=== PATIENT | female | born 1950 | race Two or more races ===

== ENCOUNTER → 2025-05-02 | Outpatient (CLI) | payer MEDICARE, SELFPAY ==
[2025-05-02 10:25] LABS: Collection Type, Urine Clean Catch
[2025-05-02 10:51] LABS: Parathyroid Hormone Intact 49.0 pg/ml (18.5-88.0)
[2025-05-02 10:52] LABS: Basophils # (Auto) 0.1 Thou/mm3 (0.0-0.2); Basophils % (Auto) 1 % (0-2.5); Eosinophils # (Auto) 0.2 Thou/mm3 (0.0-0.5); Eosinophils % (Auto) 3 % (0-10); Hematocrit 32.3 % (36.0-46.0); Hemoglobin 10.9 g/dL (12.0-16.0); Immature Granulocytes Auto 0.01 Thou/mm3 (0.00-0.00); Lymphocytes # (Auto) 2.1 Thou/mm3 (1.0-4.8); Lymphocytes % (Auto) 28 % (10-50); Mean Corpuscular HGB Conc 33.7 g/dl (31.0-37.0); Mean Corpuscular Hemoglobin 29.9 pg (25.0-35.0); Mean Corpuscular Volume 89 fL (80-100); Monocytes # (Auto) 0.6 Thou/mm3 (0.0-0.8); Monocytes % (Auto) 8 % (0-12); Neutrophils # (Auto) 4.4 Thou/mm3 (1.8-7.7); Neutrophils % (Auto) 60 % (37-80); Nucleated Red Blood Cell # 0.00 Thou/mm3 (0.00-0.00); Nucleated Red Blood Cell % 0 /100 WBC (0); Platelet Count 136 Thou/mm3 (140-440); RDW Standard Deviation 45.8 fL (36.4-46.3); Red Blood Count 3.65 Miln/mm3 (4.00-5.20); White Blood Count 7.3 Thou/mm3 (3.6-11.0)
[2025-05-02 10:57] LABS: Vitamin B12 714 pg/mL (211-911); Vitamin D 25 Hydroxy Total 55.2 ng/mL (7.3-40.2)
[2025-05-02 11:01] LABS: Creatinine MALB Rnd Ur 59 mg/dL (30-125); Microalbumin Creat Ratio 14 mg/gCrea (<30); Microalbumin, Random Urine 8 mg/L (0-300)
[2025-05-02 11:06] LABS: Bilirubin,Urine Negative (Negative); Blood,Urine Negative (Negative); Clarity,Urine Clear (Clear/Hazy); Color,Urine Colorless (Lt Yel-Yel); Glucose, Urine Negative (Negative); Ketones,Urine Negative (Negative); Leukocyte Esterase,Urine Negative (Negative); Nitrite,Urine Negative (Negative); PH,Urine 6.0 (5.0-7.0); Protein,Urine Negative (Neg - Trace); RBC,Urine 1 /hpf (0-3); Specific Gravity,Urine 1.011 (1.001-1.035); Squamous Epithelial Cell,Urine < 1 /hpf (0-5); Urobilinogen,Urine Negative mg/dL (0.0-1.0); WBC,Urine 1 /hpf (0-5)
[2025-05-02 11:06] LABS: Alanine Aminotransferase 12 U/L (10-49); Albumin, Serum 4.3 gm/dL (3.4-4.8); Albumin/Globulin Ratio 1.4 (1.2-2.2); Alkaline Phosphatase 85 U/L (46-116); Anion Gap 11 (7-16); Aspartate Amino Transferase 25 U/L (0-34); BUN/Creatinine Ratio 16 Ratio (12-20); Bilirubin,Total 0.7 mg/dL (0.3-1.2); Blood Urea Nitrogen 25 mg/dL (9-23); Calcium 9.5 mg/dL (8.3-10.6); Calcium (Corrected) 9.5 mg/dL (8.5-10.1); Carbon Dioxide 25.2 mMol/L (20.0-31.0); Cardiac Risk Estimate 3.2 RATIO (3.7-5.6); Chloride 105 mMol/L (98-107); Cholesterol 111 mg/dL (132-200); Creatinine (Component) 1.6 mg/dL (0.6-1.3); Globulin 3.1 gm/dL (2.3-3.5); Glucose 106 mg/dL (74-106); HDL Cholesterol 35 mg/dL (40-60); LDL Cholesterol,Calculated 49 mg/dL (0-130); Osmolality,Calculated 285 (275-295); Potassium 4.8 mMol/L (3.4-5.1); Sodium 141 mMol/L (136-145); Thyroid Stimulating Hormone 1.51 uIU/mL (0.55-4.78); Total Protein 7.4 gm/dL (5.7-8.2); Triglycerides 134 mg/dL (30-150); Uric Acid 6.1 mg/dL (3.1-7.8); eGFR 34 See Note
[2025-05-02 11:20] LABS: Glucose Estimated Average 134 mg/dL (80-131); Hemoglobin A1C 6.3 % Hgb (4.8-6.0)
== END | disposition home or self-care (01) ==
PROVIDERS: PCP Internal Medicine; Referring Provider Internal Medicine; Visit Provider Internal Medicine
DX: E11.9 Type 2 diabetes mellitus without complications (principal); E78.5 Hyperlipidemia, unspecified; I10 Essential (primary) hypertension; Z00.00 Encounter for general adult medical examination without abnormal findings
CPT/HCPCS: 36415; 80053; 80061; 81001; 82043; 82306; 82570; 82607; 83036; 83970; 84443; 84550; 85025

== ENCOUNTER → 2025-05-09 | Outpatient (CLI) | payer MEDICARE, MEDICAID, SELFPAY ==
[2025-05-09 15:00] LABS: OBS Performed By LAB; OBS QC OK? Yes
[2025-05-09 15:47] LABS: Occult Blood, Stool Negative (Negative); Occult Blood, Stool #2 Negative (Negative); Occult Blood, Stool #3 Negative (Negative)
[2025-05-09 15:49] LABS: OBS Developer Expiration Date 123126; OBS Developer Lot # 1-24-551749
== END | disposition home or self-care (01) ==
PROVIDERS: PCP Internal Medicine; Referring Provider Internal Medicine; Visit Provider Internal Medicine
DX: Z12.11 Encounter for screening for malignant neoplasm of colon (principal)
CPT/HCPCS: 82270

== ENCOUNTER → 2025-06-17 | Outpatient (CLI) | payer MEDICARE, MEDICAID, SELFPAY ==
--- NOTE | 2025-06-17 11:00 | XR_ITS ---
Examination: Screening digital mammography, bilateral Computer aided detection 3-D breast Tomosynthesis, bilateral Date and time of exam: June 17, 2025, 1105 hours Compared to mammograms dating to February 01, 2013 Indication: Screening Technique: Nonmagnified MLO, CC views of the breasts to been obtained, reconstructed from 3-D Tomosynthesis images. R2 computer aided detection program utilized for evaluation of suspicious masses and/or abnormal calcifications. 3-D Tomosynthesis images obtained. Findings: Scattered areas of fibroglandular density. Benign calcifications. No interval suspicious masses Impression: BI-RADS category II: Benign Findings. Recommend 1 year follow-up mammogram.
== END | disposition home or self-care (01) ==
LOC: CDIM 10:51
PROVIDERS: Referring Provider Internal Medicine; Visit Provider Internal Medicine
DX: Z12.31 Encounter for screening mammogram for malignant neoplasm of breast (principal); R92.323 Mammographic fibroglandular density, bilateral breasts; R92.1 Mammographic calcification found on diagnostic imaging of breast
CPT/HCPCS: 77063; 77067

== ENCOUNTER 2025-07-11 07:42 | Emergency (ER) | payer OTHER, MEDICAID, SELFPAY ==
[2025-07-11 07:53] VITALS: BP 146/63; PULSE 65; RESP 18; TEMP 36.9; O2SAT 99; BMI 34.0
--- NOTE | 2025-07-11 08:11 | XR_ITS ---
Examination:Left hip AP, lateral, AP pelvis 3 views Technique: Hip AP lateral, AP pelvis, 3 views Exam date and time:July 11, 2025, 0812 hours INDICATIONS: Onset left hip pain today no trauma FINDINGS: The films do not include on the AP view of the lower hip Mild narrowing hip joints Greater trochanteric bursitis left hip No hip or pelvic fracture IMPRESSION: Mild narrowing hip joints Greater trochanteric bursitis left hip.
--- NOTE | 2025-07-11 09:13 | PD.EDHIP ---
Lower Extremity Injury RME/HPI General Chief Complaint: Hip Injury/Pain Stated Complaint: L) HIP PAIN, 04/21 Time Seen by Provider: 07/11/25 07:56 Source: patient Arrival date/time: 07/11/25 07:42 74-year-old female with a history of hyperlipidemia, hypertension presents to the emergency room with a chief complaint of left-sided hip pain x 2 days Mode of arrival: ambulatory Limitations: no limitations Related Data Home Medications ?Medication ?Instructions ?Recorded ?Confirmed sertraline 50 mg tablet 50 mg PO QDAY 02/24/18 03/25/23 atorvastatin 10 mg tablet 10 tab PO QDAY 05/30/22 03/25/23 glipizide 5 mg-metformin 500 mg 1 tab PO BID 05/30/22 03/25/23 tablet lisinopril 10 mg tablet 10 tab PO QDAY 05/30/22 03/25/23 furosemide 20 mg tablet 20 mg PO QDAY 03/25/23 03/25/23 ibuprofen 400 mg tablet 400 mg PO BID 03/25/23 03/25/23 Allergies Allergy/AdvReac Type Severity Reaction Status Date / Time No Known Allergies Allergy Verified 07/11/25 07:46 Review of Systems Review of Systems Systems Reviewed: All systems reviewed, normal except as documented Constitutional Constitutional: Reports system reviewed and no additional complaints, except as documented, Denies fatigue, Denies fever(s), Denies headache(s) and Denies weakness Eyes Eyes: Reports system reviewed and no additional complaints, except as documented, Denies blurry vision and Denies change in vision ENT Ears, Nose, Mouth, and Throat: Reports system reviewed and no additional complaints, except as documented, Denies otalgia, Denies headache(s), Denies nasal congestion, Denies throat swelling and Denies vertigo Cardiovascular Cardiovascular: Reports system reviewed and no additional complaints, except as documented, Denies chest pain, Denies dyspnea and Denies dyspnea on exertion Respiratory Respiratory: Reports system reviewed and no additional complaints, except as documented, Denies chest congestion, Denies cough, Denies dyspnea, Denies dyspnea on exertion and Denies wheezing Gastrointestinal Gastrointestinal: Reports system reviewed and no additional complaints, except as documented, Denies abdominal pain, Denies cramping, Denies nausea and Denies vomiting Genitourinary Genitourinary: Reports system reviewed and no additional complaints, except as documented Musculoskeletal Musculoskeletal: Reports system reviewed and no additional complaints, except as documented, Reports arthralgias, Denies back pain, Reports joint swelling, Reports limited range of motion and Reports stiffness Integumentary/Breasts Skin/Breast: Reports system reviewed and no additional complaints, except as documented and Denies wounds Neurologic Neurologic: Reports system reviewed and no additional complaints, except as documented, Denies confusion, Denies headache(s), Denies lack of coordination, Denies vertigo and Denies weakness Psychiatric Psychiatric: Reports system reviewed and no additional complaints, except as documented, Denies anxiety, Denies confusion, Denies depression, Denies paranoia, Denies suicidal ideation and Denies tactile hallucinations Endocrine Endocrine: Reports system reviewed and no additional complaints, except as documented and Denies fatigue Hematologic/Lymphatic Hematologic/Lymphatic: Reports system reviewed and no additional complaints, except as documented and Denies lymphadenopathy Allergic/Immunologic Allergic/Immunologic: Reports system reviewed and no additional complaints, except as documented, Denies throat swelling, Denies urticaria and Denies wheezing Past Medical History Past Medical History NEUROLOGIC: Positive Neurological Disorders and Cerebrovascular Accident; Negative Seizures CARDIAC: Positive Cardiac Disorders, Hypercholesterolemia and Hypertension; Negative Congestive Heart Failure RESPIRATORY: Negative Chronic Obstructive Pulmonary Disease (COPD) GASTROINTESTINAL: Negative Gastrointestinal Disorders GENITOURINARY: Negative Genitourinary Disorders or Renal Disease REPRODUCTIVE: Positive Previous Pregnancies MUSCULOSKELETAL: Negative Musculoskeletal Disorders ENT: Positive Cataracts and Eye Prosthesis ENDOCRINE: Positive Endocrine Disorders and Diabetes Mellitus Type 2; Negative Diabetes Mellitus Type 1 HEMATOLOGIC: Negative Blood Disorders PSYCHO/SOCIAL: Positive Depression and Anxiety OTHER HISTORY: Positive Chicken Pox; Negative Autoimmune Disease, Developmental Delay, Falls, Blood Transfusions, Blood Transfusion Reaction or Anesthesia Reactions Family History FAMILY HISTORY: Positive Family Cardiac Disorders and Family Surgery; Negative Family Psychiatric Problems, Family Respiratory Disorders, Family Gastrointestinal Problems, Family Cancer or Family Anesthesia Reaction Surgical History SURGICAL: Positive Eye Surgery, Hysterectomy and Section Social History SMOKING STATUS: Former smoker ED Exam General Limitations: Present no limitations General appearance: Present alert and in no apparent distress Head Head exam: Present atraumatic Eye Eye exam: Present normal appearance, PERRL and EOMI ENT ENT exam: Present normal exam, normal oropharynx and mucous membranes moist Neck Neck exam: Present normal inspection, full ROM and trachea midline Chest Chest inspection: Present normal inspection and symmetric chest wall rise Respiratory Respiratory exam: Present normal lung sounds bilaterally Cardiovascular Cardiovascular exam: Present regular rate, normal rhythm and normal heart sounds Abdominal Exam Abdominal exam: Present soft and normal bowel sounds Extremities Exam Extremities exam: Present normal inspection and full ROM Expanded Lower Extremity Exam Hip/Pelvis exam: Present tenderness and swelling; Absent full ROM or erythema Back Exam Back exam: Present normal inspection and full ROM Neurological Exam Neurological exam: Present alert, oriented X3 and CN II-XII intact Psychiatric Psychiatric exam: Present normal affect and normal mood Skin Skin exam: Present warm, dry, intact and normal color Course Quality Measures none Orders Category Date Time Status XR hip LT w pelvis 2-3V Stat Exams 07/11/25 08:11 Completed Ketorolac Inj [Toradol Inj] Med 07/11/25 09:08 Discontinued 30 mg IM X1 ONE Vital Signs Vital signs: Vital Signs Temperature 98.5 F 07/11/25 07:53 Pulse Rate 65 07/11/25 07:53 Respiratory Rate 18 07/11/25 07:53 Blood Pressure 146/63 H 07/11/25 07:53 Pulse Oximetry (%) 99 07/11/25 07:53 Oxygen Delivery Method Room Air 07/11/25 07:53 Extremity Injury, Lower MDM Narrative MDM Narrative:: 74-year-old female with a history of hyperlipidemia, hypertension presents to the emergency room with a chief complaint of left-sided hip pain x 2 days Patient is hemodynamically stable and in no apparent distress. Physical examination shows tenderness and pain to the patient's left hip with palpation. Patient states yesterday she was ambulating normally and today she is having to use a walker due to the pain and tenderness to the area. X-ray of the left hip was completed and shows bursitis of the left hip. Patient was given medication and was discharged and educated to follow-up with her primary care provider Patient was discharged and educated to follow-up with primary care provider in the next 24 to 48 hours and return to the emergency room for any evidence of worsening signs or symptoms Patient data External records reviewed:: [facility] previous records Clinical information provided by:: patient Social determinants that could affect healthcare access:: none Patient has the following chronic illnesses:: Hyperlipidemia, hypertension, type 2 diabetes How is presenting disease/condition affected by chronic disease/condition?: uneffected by Evaluation data The following diagnostics were reviewed and interpreted by me:: lab results and radiology exam(s) Lab and/or radiology exams considered but not ordered:: Labs and radiology exams considered but ordered Interpretation Summary: X-ray left hip-FINDINGS: The films do not include on the AP view of the lower hip Mild narrowing hip joints Greater trochanteric bursitis left hip No hip or pelvic fracture IMPRESSION: Mild narrowing hip joints Greater trochanteric bursitis left hip. Medications / Prescriptions Medications or Prescriptions considered but not ordered:: Medication given Medication administrations:: Medication Administration History Discontinued Medications Ketorolac Tromethamine (Ketorolac Inj 60 Mg/2 Ml Vial) 30 mg IM X1 ONE Stop: 07/11/25 09:09 Medication given Consultations Consultation(s) initiated? (list below): No Diagnosis Extremity Injury, Lower Differential Diagnosis: other (Bursitis of left hip/left hip fracture/left hip contusion) Most likely diagnosis given after review of the tests above:: Bursitis of left hip Admission Indicated Admission indicated?: not indicated Admission Request Was there a request for admission?: No Disposition Plan Disposition Plan: Discharge Discharge Attestation Discharge Attestation: The patient and all family members were given an opportunity to ask questions and understood the discharge instructions. Discharge instructions specifically effects, indications for sooner follow up or return to the emergency department, and the expected course of current diagnosis. Patient condition: Stable Discharge Plan Plan Patient Disposition: HOME (Self Care) Discharge Disposition comment: Stable Prescriptions/Referrals Prescriptions/Med Rec: No Action atorvastatin 10 mg tablet 10 tab PO QDAY Patient Comments: TAKE 1 TABLET BY MOUTH AT BEDTIME lisinopril 10 mg tablet 10 tab PO QDAY Patient Comments: TAKE 1 TABLET BY MOUTH ONCE DAILY glipizide-metformin 5-500 mg tablet 1 tab PO BID Patient Comments: TAKE 1 TABLET BY MOUTH TWICE DAILY sertraline 50 mg Tablet 50 mg PO QDAY ibuprofen 400 mg Tablet 400 mg PO BID furosemide 20 mg tablet 20 mg PO QDAY Patient Comments: TAKE 1 TABLET BY MOUTH ONCE DAILY Problem List Clinical Impression: Bursitis of left hip Patient/Caregiver Discharge Instructions Education Materials: What Is Bursitis?, ED Bursitis Additional Instructions: Please follow-up with your primary care provider in the next 24 to 48 hours Medication was sent to help you with your pain. Please protect, rest, ice, elevate the extremity. For any evidence of worsening signs or symptoms return to the emergency room immediately Print Language: Iranian Stand Alone Forms: Za Award Info., Work/School Release, Patient Portal Info Letter PA/COLLINS Supervising Physician PA/BILL DISTRIBUTOR Supervising Physician: Dr. Verduzco
[2025-07-11] MEDS: KETOROLAC INJ 60 MG/2 ML VIAL 30 MG IM (09:51)
== END 2025-07-11 11:08 | disposition home or self-care (01) ==
PROVIDERS: Emergency Provider Family Medicine; PCP Internal Medicine
DX: M70.62 Trochanteric bursitis, left hip (principal); M25.852 Other specified joint disorders, left hip
CPT/HCPCS: 73502; 96372; 99283; J1885

== ENCOUNTER 2025-07-18 19:51 | Inpatient (IN) | payer MEDICARE, MEDICAID, SELFPAY ==
[2025-07-18 19:53] VITALS: BMI 34.0
[2025-07-18 20:21] VITALS: BP 144/63; PULSE 63; RESP 20; TEMP 36.9; O2SAT 93
--- NOTE | 2025-07-18 20:27 | EKG_ITS ---
[facility] Test Date: 2025-07-18 Pat Name: MANUEL BOUDREAUX Department: Room: - Gender: Female Betting Clerk: : 1950 Requested By: Sal Arrieta Order Number: [id number] Reading MD: Sal Arrieta Measurements Intervals [place] Rate: 60 P: 36 MN: 199 QRS: 7 QRSD: 90 T: 15 QT: 439 QTc: 441 Interpretive Statements SINUS RHYTHM POSSIBLE LEFT ATRIAL ENLARGEMENT [-0.1mV P-WAVE IN V1/V2] LOW QRS VOLTAGE IN PRECORDIAL LEADS [QRS DEFLECTION < 1.0 mV IN CHEST LEADS] POSSIBLE ANTERIOR MYOCARDIAL INFARCTION , PROBABLY OLD [30 ms Q WAVE IN V3/V4, OR R < 0.2 mV IN V4] Compared to ECG 07/14/2018 12:56:04 Myocardial infarct finding now present /store/S0/[id number]/ecg/[id number].pdf
--- NOTE | 2025-07-18 20:28 | XR_ITS ---
Examination: PA chest single view Technique: Upright PA chest single view Date and time: July 18, 2025, 2048 hrs., Comparison September 07, 2018 Indications: Shortness of breath dizziness beginning today. Findings: Mild heart failure. Mild to moderate enlargement cardiac contour Prominent vascular congestion including central vascular engorgement Early septal edema at the lung bases Mitral valvular calcification Prominent osteopenia Impression: Early heart failure. Pulmonary artery hypertension
--- NOTE | 2025-07-18 20:28 | PD.EDRME ---
Rapid Medical Screening Exam E Arrival date/time: 07/18/25 19:51 Chief Complaint: Shortness of Breath/Dyspnea Time Seen by Provider: 07/18/25 20:07 Vital signs: Vital Signs Temperature 98.5 F 07/18/25 20:21 Pulse Rate 63 07/18/25 20:21 Respiratory Rate 20 07/18/25 20:21 Blood Pressure 144/63 H 07/18/25 20:21 Pulse Oximetry (%) 93 L 07/18/25 20:21 Oxygen Delivery Method Room Air 07/18/25 20:21 [facility] Narrative: Shortness of breath, dizziness started today. Denies cough or chest pain.
[2025-07-18 21:06] LABS: Basophils # (Auto) 0.1 Thou/mm3 (0.0-0.2); Basophils % (Auto) 1 % (0-2.5); Eosinophils # (Auto) 0.0 Thou/mm3 (0.0-0.5); Eosinophils % (Auto) 1 % (0-10); Hematocrit 30.6 % (36.0-46.0); Hemoglobin 10.1 g/dL (12.0-16.0); Immature Granulocytes Auto 0.02 Thou/mm3 (0.00-0.00); Lymphocytes # (Auto) 1.5 Thou/mm3 (1.0-4.8); Lymphocytes % (Auto) 17 % (10-50); Mean Corpuscular HGB Conc 33.0 g/dl (31.0-37.0); Mean Corpuscular Hemoglobin 30.2 pg (25.0-35.0); Mean Corpuscular Volume 92 fL (80-100); Monocytes # (Auto) 0.6 Thou/mm3 (0.0-0.8); Monocytes % (Auto) 7 % (0-12); Neutrophils # (Auto) 6.4 Thou/mm3 (1.8-7.7); Neutrophils % (Auto) 75 % (37-80); Nucleated Red Blood Cell # 0.00 Thou/mm3 (0.00-0.00); Nucleated Red Blood Cell % 0 /100 WBC (0); Platelet Count 154 Thou/mm3 (140-440); RDW Standard Deviation 49.3 fL (36.4-46.3); Red Blood Count 3.34 Miln/mm3 (4.00-5.20); White Blood Count 8.6 Thou/mm3 (3.6-11.0)
[2025-07-18 21:18] LABS: Alanine Aminotransferase 33 U/L (10-49); Albumin, Serum 4.3 gm/dL (3.4-4.8); Albumin/Globulin Ratio 1.5 (1.2-2.2); Alkaline Phosphatase 92 U/L (46-116); Anion Gap 10 (7-16); Aspartate Amino Transferase 40 U/L (0-34); BUN/Creatinine Ratio 16 Ratio (12-20); Bilirubin,Total 0.7 mg/dL (0.3-1.2); Blood Urea Nitrogen 29 mg/dL (9-23); Calcium 9.3 mg/dL (8.3-10.6); Calcium (Corrected) 9.3 mg/dL (8.5-10.1); Carbon Dioxide 24.6 mMol/L (20.0-31.0); Chloride 109 mMol/L (98-107); Creatinine (Component) 1.8 mg/dL (0.6-1.3); Estimated Creatinine Clearance 27.0 mL/min (>60); Globulin 2.8 gm/dL (2.3-3.5); Glucose 101 mg/dL (74-106); Osmolality,Calculated 292 (275-295); Potassium 4.2 mMol/L (3.4-5.1); Sodium 144 mMol/L (136-145); Total Protein 7.1 gm/dL (5.7-8.2); Troponin I 0.020 ng/mL (0.0-0.045); eGFR 29 See Note
[2025-07-18 21:19] LABS: B-Type Natriuretic Peptide 889 pg/mL (0-100)
[2025-07-18 21:21] LABS: D-Dimer 526 ng/mL (<600)
--- NOTE | 2025-07-18 22:05 | EDNOTE_ITS ---
ED General RME/HPI General Chief complaint: Shortness of Breath/Dyspnea Stated complaint: SOB Time Seen by Provider: 07/18/25 20:07 Arrival date/time: 07/18/25 19:51 CC: Shortness of breath HPI patient first noticed today approximately 1:00 this afternoon the patient noticed that she had difficulty getting short of breath after taking 510 steps. She does not recall that happening prior to today. Patient denies fever chest pain nausea vomiting or diarrhea. Current medications do not include any diuretics. Patient states when resting she has no problems but when she is begins to move around the house she becomes short of breath. No other complaints at this time RME / HPI RME / HPI narrative: Shortness of breath, dizziness started today. Denies cough or chest pain. Related Data Home Medications ?Medication ?Instructions ?Recorded ?Confirmed sertraline 50 mg tablet 50 mg PO QDAY 02/24/1803/25 atorvastatin 10 mg tablet 10 tab PO QDAY 05/30/2203/13 glipizide 5 mg-metformin 500 mg 1 tab PO BID 05/30/22 03/25/23 tablet lisinopril 10 mg tablet 10 tab PO QDAY 05/30/2203/13 furosemide 20 mg tablet 20 mg PO QDAY 03/25/2303/25 ibuprofen 400 mg tablet 400 mg PO BID 03/25/2303/25 Allergies Allergy/AdvReac Type Severity Reaction Status Date / Time No Known Allergies Allergy Verified 07/11/25 07:46 Review of Systems Review of Systems Narrative Review of Systems: GEN: No fever, no chills, no weight loss EYES: No discharge, no visual changes, no pain HEENT: No ear pain, no congestion, no sore throat PULM: + shortness of breath, no cough, no congestion CV: No chest pain, no dyspnea on exertion, no palpitations GI: No nausea, no vomiting, no diarrhea, no pain, no constipation : No frequency, no urgency, no dysuria MUSC/SKEL: No joint pain, no back pain SKIN: No rash PSYCH: No hallucinations, no depression HEME/LYMPH: No easy bleeding or bruising tendencies NEURO: No weakness, no headache Past Medical History Past Medical History NEUROLOGIC: Positive Neurological Disorders and Cerebrovascular Accident; Negative Seizures CARDIAC: Positive Cardiac Disorders, Hypercholesterolemia and Hypertension; Negative Congestive Heart Failure RESPIRATORY: Negative Chronic Obstructive Pulmonary Disease (COPD) GASTROINTESTINAL: Negative Gastrointestinal Disorders GENITOURINARY: Negative Genitourinary Disorders or Renal Disease REPRODUCTIVE: Positive Previous Pregnancies MUSCULOSKELETAL: Negative Musculoskeletal Disorders ENT: Positive Cataracts and Eye Prosthesis ENDOCRINE: Positive Endocrine Disorders and Diabetes Mellitus Type 2; Negative Diabetes Mellitus Type 1 HEMATOLOGIC: Negative Blood Disorders PSYCHO/SOCIAL: Positive Depression and Anxiety OTHER HISTORY: Positive Chicken Pox; Negative Autoimmune Disease, Developmental Delay, Falls, Blood Transfusions, Blood Transfusion Reaction or Anesthesia Reactions Family History FAMILY HISTORY: Positive Family Cardiac Disorders and Family Surgery; Negative Family Psychiatric Problems, Family Respiratory Disorders, Family Gastrointestinal Problems, Family Cancer or Family Anesthesia Reaction Surgical History SURGICAL: Positive Eye Surgery, Hysterectomy and Section Social History SMOKING STATUS: Never smoker ED Exam Narrative Physical exam: [General: Obese not in any acute distress when resting in bed Head normocephalic HEENT: Eyes pupils are PERRLA EOMs are intact mouth pink moist membranes uvula is midline swallow symmetrical phonation is normal. All other subsystems HEENT are within acceptable limits Neck is supple nontender no JVD no edema Chest equal chest rise nontender to palpation Respiratory: Subtle basilar end expiratory crackles. CV: Rate rhythm is regular grade 3 murmur Abdomen is distended secondary to body habitus soft nontender no masses positive bowel sounds all 4 quadrants Back: No CVA tenderness no spinous process tenderness from cervical spine thoracic and lumbar spine Skin: Intact no petechiae rash induration ulceration or crepitus Extremities: Moving all extremity against resistance cap refill less than 2 seconds neurosensory intact. No lower extremity edema Neuro: Awake alert oriented x3 Glascow coma 15 no focal deficits] Course Course Course Narrative: Patient is clinical finding including the murmur laboratory results and imaging discussed with Dr. Liang who would like the patient admitted for early heart failure exertional dyspnea. Patient is in agreement with this plan. Quality Measures none Orders Category Date Time Status Admit to Inpatient Status Routine Admission 07/18/25 21:59 Active EKG (ED ONLY) *Do not use* NOW Care 07/18/25 20:27 Completed CXR [XR chest 1V] Stat Exams 07/18/25 20:28 Completed EKG (ED Only) Stat Exams 07/18/25 20:27 Draft BNP [B-Type Natriuretic Peptide] Stat Lab 07/18/25 20:41 Completed CBC Stat Lab 07/18/25 20:41 Completed CMP [Comprehensive Metabolic Panel] Stat Lab 07/18/25 20:41 Completed D-Dimer Stat Lab 07/18/25 20:41 Completed Troponin I Stat Lab 07/18/25 20:41 Completed Vital Signs Vital signs: Vital Signs Temperature 98.5 F 07/18/25 20:21 Pulse Rate 63 07/18/25 20:21 Respiratory Rate 20 07/18/25 20:21 Blood Pressure 144/63 H 07/18/25 20:21 Pulse Oximetry (%) 93 L 07/18/25 20:21 Oxygen Delivery Method Room Air 07/18/25 20:21 Discharge Plan Plan Patient Disposition: Other Care w/in Hosp ([facility]) Patient condition on transfer: Stable Prescriptions/Referrals Prescriptions/Med Rec: No Action atorvastatin 10 mg tablet 10 tab PO QDAY Patient Comments: TAKE 1 TABLET BY MOUTH AT BEDTIME lisinopril 10 mg tablet 10 tab PO QDAY Patient Comments: TAKE 1 TABLET BY MOUTH ONCE DAILY glipizide-metformin 5-500 mg tablet 1 tab PO BID Patient Comments: TAKE 1 TABLET BY MOUTH TWICE DAILY sertraline 50 mg Tablet 50 mg PO QDAY ibuprofen 400 mg Tablet 400 mg PO BID furosemide 20 mg tablet 20 mg PO QDAY Patient Comments: TAKE 1 TABLET BY MOUTH ONCE DAILY Referrals: Juan Liang MD [Primary Care Provider, Nephrology] - In 1 week Problem List Clinical Impression: Shortness of breath, CHF (congestive heart failure), Heart murmur Patient/Caregiver Discharge Instructions Print Language: Estonian Stand Alone Forms: Za Award Info., Patient Portal Info Letter PA/SCHOOL LIBRARY MEDIA SPECIALIST Supervising Physician PA/SCHOOL LIBRARY MEDIA SPECIALIST Supervising Physician: Alex Ramirez ENP [facility] Clinical Information Provided by: patient Medical Records reviewed [facility] Meds/Rx considered, not ordered None Labs/Rad/Tests considered, not ordered None Chronic Illness/Social Conditions Explain: Diabetes depression hyperlipidemia EKG Interpretation EKG #1: EKG Interpretation: EKG performed at 2030 shows a ventricular rate of 60 LA interval 199 QRS of 98 QTc of 441 compared to an old EKG of 2018 there are no significant changes. Labs Labs: interpreted by ar Lab(s) Interpretation(s): CBC shows no acute leukocytosis there is stable anemia with a hemoglobin of 10.1 hematocrit of 30.6. No thrombocytopenia D-dimer within normal limits CMP shows a chloride of 109 BUN of 29 creatinine of 1.8 note this a slight rise in the creatinine, no other electrolyte imbalances no renal impairment AST at 40 no other transaminitis T. bili within acceptable limits Troponin is 0.020 BMP at 889. Imaging Imaging interpretation: interpreted by me Imaging Interpretation(s): Chest x-ray shows early mild failure.
[2025-07-18 22:38] VITALS: BP 177/68; PULSE 60; RESP 19; TEMP 36.9; O2SAT 95
[2025-07-18 23:00] VITALS: PULSE 60
[2025-07-18 23:15] VITALS: BP 157/89; PULSE 59; RESP 19; TEMP 36.9; O2SAT 94
[2025-07-19] VITALS (12 sets, daily range): BP systolic 137–166; BP diastolic 48–79; PULSE 52–76; RESP 11–93; TEMP 36.1–36.8; O2SAT 90–98
[2025-07-19 06:08] LABS: Albumin, Serum 4.3 gm/dL (3.4-4.8); Anion Gap 9 (7-16); Aspartate Amino Transferase 36 U/L (0-34); BUN/Creatinine Ratio 14 Ratio (12-20); Blood Urea Nitrogen 22 mg/dL (9-23); Calcium 9.5 mg/dL (8.3-10.6); Calcium (Corrected) 9.5 mg/dL (8.5-10.1); Carbon Dioxide 24.3 mMol/L (20.0-31.0); Chloride 107 mMol/L (98-107); Creatine Kinase 69 U/L (34-171); Creatinine (Component) 1.6 mg/dL (0.6-1.3); Estimated Creatinine Clearance 30.3 mL/min (>60); Glucose 138 mg/dL (74-106); LDH (Lactate Dehydrogenase) 234 U/L (120-246); Osmolality,Calculated 284 (275-295); Phosphorous 3.3 mg/dL (2.4-5.1); Potassium 4.0 mMol/L (3.4-5.1); Sodium 140 mMol/L (136-145); Troponin I 0.020 ng/mL (0.0-0.045); eGFR 34 See Note
[2025-07-19] MEDS: FUROSEMIDE INJ 10 MG/ML 4ML VIAL 40 MG IVP (08:43)
--- NOTE | 2025-07-19 09:46 | ESHP_ITS ---
Documentation for date of: 07/19/25 [facility] History of Present Illness Chief complaint: Shortness of breath since yesterday afternoon History of present illness: Sophie is a 74-year-old female with a history of hypertension, hyperlipidemia, type 2 diabetes mellitus, prior cerebrovascular accident with residual mild dementia, depression, and anxiety, presented to the ED last night (07/18/25) for new-onset shortness of breath that began earlier in the afternoon around 1:00 PM. She reports becoming short of breath after walking only a few steps, which has not happened before. Symptoms improve at rest. She denies chest pain, orthopnea, PND, palpitations, cough, fever, chills, nausea, vomiting, or leg swelling. She is not on any diuretics at home. In the ED, vitals were stable. Exam revealed a blowing systolic murmur heard from the anterior chest and posterior lung yeung, with subtle bibasilar crackles. CXR showed early pulmonary vascular congestion and mild pulmonary artery hypertension. BNP was elevated at 889, and troponins were negative ?2. Creatinine was 1.8 --> 1.6 overnight. Cardiology was consulted and recommended admission for evaluation of early congestive heart failure and possible valvular disease. An echocardiogram is pending. Review of Systems: As per HPI. All other systems reviewed and negative. Past Medical History: * Hypertension * Hyperlipidemia * Type 2 Diabetes Mellitus * Cerebrovascular accident * Dementia * Depression and anxiety * Cataract, right eye prosthesis Past Surgical History: * section * Hysterectomy * Eye surgery Family History: * Positive for cardiac disease and prior surgeries * Negative for cancer, anesthesia reactions, or psychiatric disorders Social History: * Never smoker * Denies alcohol or drug use * Lives at home; mild memory impairment at baseline Home Medications: * Atorvastatin 10 mg daily * Lisinopril 10 mg daily * Donepezil 5 mg nightly * Sertraline 100 mg daily * Sitagliptin (Januvia) 25 mg daily * Ibuprofen PRN (advised to discontinue) Allergies: No known drug allergies. Review of Systems Review of Systems Narrative Review of Systems: CONSTITUTIONAL: Patient denies any fever, chills. HEENT: Denies any visual disturbances or hearing problems. CARDIOVASCULAR: Patient denies any chest pain, swelling in the lower extremities. PULMONARY: Patient complaining of shortness of breath GASTROINTESTINAL: Patient denies any abdominal pain, constipation, nausea, vomiting, diarrhea. GENITOURINARY: Patient denies any urinary symptoms of burning or frequency or hematuria, denies any form in the urine. SKIN: Denies any rash. MUSCULOSKELETAL: History of arthritis, hip pain NEUROLOGICAL: Denies any neurological problems of strokes, seizures or confusion. Patient has memory lapses PSYCHIATRIC: History of anxiety and depression Exam Vital Signs Temp Pulse Resp BP Pulse Ox O2 Del Method 96.9 F 66 11 L 155/71 H 90 L Room Air 07/19/25 08:00 07/19/25 08:43 07/19/25 08:00 07/19/25 08:43 07/19/25 08:00 07/19/25 08:00 Narrative Exam General: Awake, alert, no acute distress, obese habitus HEENT: PERRLA, EOMI, moist mucosa, no JVD Neck: Supple, no thyromegaly or bruits Cardiac: Regular rate/rhythm; grade 3/6 blowing systolic murmur radiating posteriorly; no rubs or gallops Lungs: Bibasilar end-expiratory crackles; no wheezes or rhonchi Abdomen: Soft, nontender, nondistended, bowel sounds active Extremities: No cyanosis, clubbing, or edema; pulses palpable Neuro: Alert and oriented ?2 (baseline), no focal deficits Skin: Warm, intact, no rash or lesions Results: Labs 07/18/25 20:41 07/19/25 05:30 Labs: Short CBC 07/18/25 Range/Units 20:41 WBC 8.6 (3.6-11.0) Thou/mm3 Hgb 10.1 L (12.0-16.0) g/dL Hct 30.6 L (36.0-46.0) % Plt Count 154 (140-440) Thou/mm3 BMP 07/18/25 07/19/25 20:41 05:30 Sodium 144 140 Potassium 4.2 4.0 Chloride 109 H 107 Carbon Dioxide 24.6 24.3 BUN 29 H 22 Creatinine 1.8 H 1.6 H Glucose 101 138 H Calcium 9.3 9.5 Cardiac Enzymes 07/18/25 07/19/25 Range/Units 20:41 05:30 Total Creatine Kinase 69 (34-171) U/L Troponin I 0.020 0.020 (0.0-0.045) ng/mL Liver Function 07/18/25 07/19/25 Range/Units 20:41 05:30 Total Bilirubin 0.7 (0.3-1.2) mg/dL AST 40 H 36 H (0-34) U/L ALT 33 (10-49) U/L Alkaline Phosphatase 92 (46-116) U/L Albumin 4.3 4.3 (3.4-4.8) gm/dL Quality Measures Quality Measures VTE prophylaxis Advance care planning discussed with:: patient Medications Home Medications and Allergies Home Medications ?Medication ?Instructions ?Recorded ?Confirmed ?Type sertraline 50 mg tablet 100 mg PO HS 02/24/18 History atorvastatin 10 mg tablet 10 tab PO QDAY 05/30/2205/06 History glipizide 5 mg-metformin 500 mg 1 tab PO BID 05/30/22 07/19/25 History tablet lisinopril 10 mg tablet 10 tab PO QDAY 05/30/2205/06 History furosemide 20 mg tablet 20 mg PO QDAY 03/25/2307/19 History ibuprofen 400 mg tablet 400 mg PO BID 03/25/2307/19 History donepezil 5 mg tablet 5 mg PO HS 07/19/25 07/19/25 History sitagliptin phosphate 25 mg tablet 25 mg PO QDAY 07/1907/19/25 History (Januvia) Allergies Allergy/AdvReac Type Severity Reaction Status Date / Time No Known Allergies Allergy Verified 07/11/25 07:46 Visit Medications Furosemide (Furosemide Inj 10 Mg/Ml 4ml Vial) 40 mg IVP QDAY ALEJANDRA Stop: 08/18/25 08:59 Last Admin: 07/19/25 08:43 Dose: 40 mg Assessment & Plan Plan 74-year-old female with HTN, HLD, DM2, prior CVA, and dementia presenting with acute dyspnea on exertion. Workup suggests early congestive heart failure, likely secondary to valvular disease given murmur and elevated BNP. Mild renal impairment likely prerenal. #Acute Decompensated Heart Failure Likely early CHF with valvular contribution. Plan: * Continue Furosemide 40 mg IV daily, monitor urine output and daily weigh * Strict I&O, daily weights * 2g sodium diet, 1.5 L fluid restriction * Resume lisinopril 10 mg daily (monitor K, Cr) * Hold ibuprofen * Echocardiogram (pending) * Cardiology to follow #Systolic Murmur (likely valvular regurgitation) Blowing murmur radiating posteriorly; consider MR vs AR. Plan: * Evaluate on echocardiogram * Determine severity and management per cardiology # XIMENA on CKD? Cr 1.8 --> 1.6 overnight, likely prerenal from cardiac etiology. Plan: * Avoid nephrotoxins (NSAIDs, contrast) * Continue lisinopril cautiously * Repeat BMP daily * Monitor urine output # Type 2 Diabetes Mellitus On sitagliptin at home. Plan: * Hold oral meds * Start SSI ACHS * Check A1C if not available # Hypertension Stable on lisinopril. Plan: * Continue lisinopril * Monitor BP; hold for SBP < 100 #Hyperlipidemia Plan: * Continue atorvastatin 10 mg nightly # Dementia Baseline mild cognitive impairment. Plan: * Continue donepezil 5 mg nightly * Fall precautions # Depression / Anxiety Stable. Plan: * Continue sertraline 100 mg daily Health Maintenance Diet: 2g sodium, 1.5L fluid restriction Activity: fall precautions VTE prophylaxis: Heparin 5000 units SQ q12h GI prophylaxis: Famotidine 20 mg BID Code status: Full Follow-up: Cardiology consult, echo results ----- Plan discussed with attending physician Dr. Azul Wright MD PGY-1 Internal Medicine Attending Provider Attestation/Addendum Patient seen and examined with resident physician Dr. Wright. Note reviewed, agree with findings and recommendations. Patient admitted with new onset CHF. Significant heart murmur heard. Dr. Rodriguez was consulted. Continue with diuretics. Echocardiogram ordered.
--- NOTE | 2025-07-19 10:26 | PC.SS ---
CORPORATE QUALITY ENGINEER conducted bedside contact with the patient conduct initial assessment and to discuss discharge planning.? Patient confirmed demographic information.? Patient resides at home with daughter, Alma Joshua .? Patient is retired.? Patient utilizes a cane to assist with ambulation.? Patient does not utilize home oxygen.? Patient describes the ability to complete ADL?s independently.? Patient identified daughter, Alma Joshua; as medical surrogate decision maker.? Patient?s PCP is Dr. Liang.? Patient does not participate with dialysis.? Patient does not possess any specialty providers.? Patient utilizes [facility] for medication services.? Plan is for the patient to return home at the time of discharge.? Family will provide transportation on behalf of the patient.? No further discharge needs identified by the patient.? No further intervention required at this time, social service coordinator will be available to address any further concerns.? Next of Kin: Alma Joshua D/C Plan: Home
--- NOTE | 2025-07-19 11:40 | ESCONSULT_ITS ---
<Statement entered by Homero Flores MD - 07/20/25 19:56> I personally examined evaluated this patient who appears her some dementia came to the hospital shortness of breath appears to be quite comfortable exam does show fairly loud ejection systolic murmur late peaking suspicious for severe aortic valve stenosis patient will get a cardiac echo tomorrow depend on the findings we will may discharge her home if she feels well patient clearly has severe aortic stenosis will probably require workup as an outpatient for possible underlying CAD and possible TAVR procedure. Evaluated patient with resident physician PGY 2 Dr. Michael JOLLEY agree with the treatment plan recommendation as documented will monitor the patient again and see the patient in the morning HPI Data of Consult Requesting Physician: Juan Liang MD Admitting Provider: Juan Liang MD Attending Provider: Juan Liang MD Primary Care Provider: Juan Liang MD Consult Narrative History of present illness: Sophie Flores is a 74-year-old female with a history of type 2 diabetes mellitus, hypertension, hyperlipidemia, and CVA (~2017) with residual dementia who presents with shortness of breath. Daughter and other family present at bedside to provide and supplement history given patient's dementia. They describe her shortness of breath as acute in onset, starting on the day of presentation, occurs with minimal exertion (i.e. 6 steps) with associated lightheadedness and diaphoresis. Denies any chest discomfort, orthopnea, PND, or lower extremity edema. Family also state that they have not noticed a progressive nature in her symptoms but do not live with patient. In the ED, hemodynamically stable, afebrile, and on room air. Labs significant for chronic and stable normocytic anemia, CKD with Cr at baseline, slightly elevated AST, negative troponins but BNP of 889. CXR showed vascular congestion and EKG without any significant ST or T wave abnormalities. Admitted for work-up of acute onset shortness of breath and cardiology consulted for possible new onset CHF vs valvular pathology. 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, cataracts s/p right eye prosthesis FHx: negative for significant cardiac disease or cancer SHx: deneis smoking, alcohol use, or illicit drug use PSHx: , hysterectomy, eye surgery cc:: cc: Juan Liang MD Review of Systems Review of Systems Systems Reviewed: All systems reviewed, normal except as documented Exam Vital Signs Temp Pulse Resp BP Pulse Ox O2 Del Method 96.9 F 66 11 L 155/71 H 90 L Room Air 07/19/25 08:00 07/19/25 08:43 07/19/25 08:00 07/19/25 08:43 07/19/25 08:00 07/19/25 08:00 Narrative Exam General: alert, no acute distress, able to speak full sentences HEENT: NC/AT, mucous membranes moist, bilateral sclera anicteric Cardiovascular: harsh/high-pitched systolic murmur that radiates to carotids and posteriorly, regular rate and rhythm, S1/S2 present Pulmonary: clear to auscultation bilaterally, no rales/rhonchi/wheezes Abdominal: soft, non-tender, non-distended, no rebound/guarding, normal bowel sounds present Musculoskeletal: normal ROM, no peripheral edema Skin: warm and dry, intact, no rashes Results Labs 07/18/25 20:41 07/19/25 05:30 Labs: Short CBC 07/18/25 Range/Units 20:41 WBC 8.6 (3.6-11.0) Thou/mm3 Hgb 10.1 L (12.0-16.0) g/dL Hct 30.6 L (36.0-46.0) % Plt Count 154 (140-440) Thou/mm3 BMP 07/18/25 07/19/25 20:41 05:30 Sodium 144 140 Potassium 4.2 4.0 Chloride 109 H 107 Carbon Dioxide 24.6 24.3 BUN 29 H 22 Creatinine 1.8 H 1.6 H Glucose 101 138 H Calcium 9.3 9.5 Cardiac Enzymes 07/18/25 07/19/25 Range/Units 20:41 05:30 Total Creatine Kinase 69 (34-171) U/L Troponin I 0.020 0.020 (0.0-0.045) ng/mL Liver Function 07/18/25 07/19/25 Range/Units 20:41 05:30 Total Bilirubin 0.7 (0.3-1.2) mg/dL AST 40 H 36 H (0-34) U/L ALT 33 (10-49) U/L Alkaline Phosphatase 92 (46-116) U/L Albumin 4.3 4.3 (3.4-4.8) gm/dL Quality Measures Quality Measures VTE prophylaxis Advance care planning discussed with:: patient and child Medications Home Medications and Allergies Home Medications ?Medication ?Instructions ?Recorded ?Confirmed ?Type sertraline 50 mg tablet 100 mg PO HS 02/24/18 History atorvastatin 10 mg tablet 10 tab PO QDAY 05/30/2205/06 History glipizide 5 mg-metformin 500 mg 1 tab PO BID 05/30/22 07/19/25 History tablet lisinopril 10 mg tablet 10 tab PO QDAY 05/30/2205/06 History furosemide 20 mg tablet 20 mg PO QDAY 03/25/2307/19 History ibuprofen 400 mg tablet 400 mg PO BID 03/25/2307/19 History donepezil 5 mg tablet 5 mg PO HS 07/19/25 07/19/25 History sitagliptin phosphate 25 mg tablet 25 mg PO QDAY 07/1907/19/25 History (Janette) Allergies Allergy/AdvReac Type Severity Reaction Status Date / Time No Known Allergies Allergy Verified 07/11/25 07:46 Visit Medications Acetaminophen (Acetaminophen 325 Mg Tablet) 650 mg PO Q6H PRN PRN Reason: Fever >100.4 or pain 1-6 Stop: 08/18/25 10:08 Atorvastatin Calcium (Atorvastatin Calcium 10 Mg Tablet) 10 mg PO HS ALEJANDRA Stop: 08/18/25 20:59 Dextrose (Dextrose 50%-Water Inj 50 Ml Syringe) 25 ml IV Q15MIN PRN PRN Reason: BG 50-70 responsive npo pt Stop: 08/18/25 10:13 Dextrose (Dextrose 50%-Water Inj 50 Ml Syringe) 50 ml IV Q15MIN PRN PRN Reason: BG <50 OR BG <70 & pt unresponsive Stop: 08/18/25 10:13 Donepezil HCl (Donepezil Hcl 5 Mg Tablet) 5 mg PO HS ALEJANDRA Stop: 08/18/25 20:59 Famotidine (Famotidine 20 Mg Tablet) 20 mg PO BID ALEJANDRA Stop: 08/18/25 20:59 Furosemide (Furosemide Inj 10 Mg/Ml 4ml Vial) 40 mg IVP QDAY ALEJANDRA Stop: 08/18/25 08:59 Last Admin: 07/19/25 08:43 Dose: 40 mg Glucagon (Glucagon Inj 1 Mg Vial) 1 mg IM Q15MIN PRN PRN Reason: BG <70, and no IV access Heparin Sodium (Porcine) (Heparin Sod Inj 5000 Unit/Ml Vial) 5,000 unit SC Q12HR ALEJANDRA Stop: 08/02/25 20:59 Hydralazine HCl (Hydralazine Inj 20 Mg/Ml Vial) 10 mg IVP Q6HR PRN PRN Reason: SBP > 180 Stop: 08/18/25 10:15 Insulin Human Lispro (Insulin Lispro (Admelog) 1 Unit/0.01 Ml Unit) 0 unit SC AC ALEJANDRA; Protocol Stop: 08/18/25 11:29 Lisinopril (Lisinopril 2.5 Mg Tablet) 10 mg PO QDAY [facility] Stop: 08/19/25 08:59 Morphine Sulfate (Morphine Sulf Inj 4 Mg/Ml Vial) 1 mg IVP Q2H PRN PRN Reason: PAIN SCALE 7-10 (Severe Stop: 07/24/25 10:08 Ondansetron HCl (Ondansetron Inj 2 Mg/Ml Inj 2 Ml) 4 mg IVP Q6H PRN; Protocol PRN Reason: NAUSEA OR VOMITING Stop: 08/18/25 10:08 Sertraline HCl (Sertraline Hcl 25 Mg Tablet) 100 mg PO HS [facility] Stop: 08/18/25 20:59 Assessment & Plan Plan Sophie Flores is a 74-year-old female with history of hypertension, hyperlipidemia, type 2 diabetes mellitus, prior CVA, dementia who is admitted for work-up of acute onset shortness of breath for which cardiology is also consulted. #Dyspnea on exertion #? Systolic murmur/aortic stenosis #? New onset heart failure Per history, presents with acute onset dyspnea on exertion starting on the day of admission with minimal exertion. Per family, no indication of progressive symptoms but they do not live with patient so will have to ask [id number]. Symptoms described as lightheadedness, diaphoresis, and dyspnea on exertion with high-pitched systolic murmur that radiates to carotids bilaterally and suspect etiology of presentation to be secondary to aortic stenosis. EKG without significant changes and CXR showed vascular congestion. BNP elevated at 889 and troponins negative x3. ? Echo pending ? Agree with lasix 40 mg IV daily ? Strict I/O, fluid restriction, daily weights ? Titrate blood pressure to avoid hypotension given possibility of aortic stenosis #XIMENA on CKD #Type 2 diabetes mellitus #Hypertension #Hyperlipidemia #Dementia #Depression/anxiety ? Management per primary team ----- Plan discussed with attending physician Dr. Mark Jolley MD PGY-2 Internal Medicine
[2025-07-19 14:15] LABS: Aspartate Amino Transferase 35 U/L (0-34); Creatine Kinase 72 U/L (34-171); LDH (Lactate Dehydrogenase) 257 U/L (120-246); Troponin I < 0.020 ng/mL (0.0-0.045)
[2025-07-19] MEDS: FAMOTIDINE 20 MG TABLET PO (21:57)
[2025-07-19] MEDS: ATORVASTATIN CALCIUM 10 MG TABLET PO (21:57)
[2025-07-19] MEDS: SERTRALINE HCL 25 MG TABLET 100 MG PO (21:57)
[2025-07-19] MEDS: DONEPEZIL HCL 5 MG TABLET PO (21:57)
[2025-07-19] MEDS: HEPARIN SOD INJ 5000 UNIT/ML VIAL SC (21:57)
[2025-07-19] MEDS: ACETAMINOPHEN 325 MG TABLET 650 MG PO (22:09)
[2025-07-20] VITALS (9 sets, daily range): BP systolic 121–168; BP diastolic 62–83; PULSE 50–75; RESP 12–97; TEMP 36–36.2; O2SAT 93–97
[2025-07-20 06:05] LABS: Basophils # (Auto) 0.1 Thou/mm3 (0.0-0.2); Basophils % (Auto) 1 % (0-2.5); Eosinophils # (Auto) 0.3 Thou/mm3 (0.0-0.5); Eosinophils % (Auto) 4 % (0-10); Hematocrit 34.0 % (36.0-46.0); Hemoglobin 11.2 g/dL (12.0-16.0); Immature Granulocytes Auto 0.02 Thou/mm3 (0.00-0.00); Lymphocytes # (Auto) 2.5 Thou/mm3 (1.0-4.8); Lymphocytes % (Auto) 29 % (10-50); Mean Corpuscular HGB Conc 32.9 g/dl (31.0-37.0); Mean Corpuscular Hemoglobin 29.6 pg (25.0-35.0); Mean Corpuscular Volume 90 fL (80-100); Monocytes # (Auto) 0.7 Thou/mm3 (0.0-0.8); Monocytes % (Auto) 8 % (0-12); Neutrophils # (Auto) 5.0 Thou/mm3 (1.8-7.7); Neutrophils % (Auto) 58 % (37-80); Nucleated Red Blood Cell # 0.00 Thou/mm3 (0.00-0.00); Nucleated Red Blood Cell % 0 /100 WBC (0); Platelet Count 155 Thou/mm3 (140-440); RDW Standard Deviation 46.8 fL (36.4-46.3); Red Blood Count 3.79 Miln/mm3 (4.00-5.20); White Blood Count 8.6 Thou/mm3 (3.6-11.0)
[2025-07-20 06:16] LABS: Glucose Estimated Average 114 mg/dL (80-131); Hemoglobin A1C 5.6 % Hgb (4.8-6.0)
[2025-07-20 06:37] LABS: Alanine Aminotransferase 16 U/L (10-49); Albumin, Serum 4.4 gm/dL (3.4-4.8); Albumin/Globulin Ratio 1.5 (1.2-2.2); Alkaline Phosphatase 78 U/L (46-116); Anion Gap 10 (7-16); Aspartate Amino Transferase 31 U/L (0-34); BUN/Creatinine Ratio 18 Ratio (12-20); Bilirubin,Total 1.0 mg/dL (0.3-1.2); Blood Urea Nitrogen 25 mg/dL (9-23); Calcium 9.7 mg/dL (8.3-10.6); Calcium (Corrected) 9.7 mg/dL (8.5-10.1); Carbon Dioxide 26.6 mMol/L (20.0-31.0); Chloride 104 mMol/L (98-107); Creatinine (Component) 1.4 mg/dL (0.6-1.3); Estimated Creatinine Clearance 33.1 mL/min (>60); Globulin 2.9 gm/dL (2.3-3.5); Glucose 105 mg/dL (74-106); Magnesium 1.8 mg/dL (1.6-2.6); Osmolality,Calculated 285 (275-295); Phosphorous 3.6 mg/dL (2.4-5.1); Potassium 4.2 mMol/L (3.4-5.1); Sodium 141 mMol/L (136-145); Thyroid Stimulating Hormone 1.08 uIU/mL (0.55-4.78); Total Protein 7.3 gm/dL (5.7-8.2); eGFR 40 See Note
[2025-07-20] MEDS: FUROSEMIDE INJ 10 MG/ML 4ML VIAL 40 MG IVP (08:44)
[2025-07-20] MEDS: FAMOTIDINE 20 MG TABLET PO (08:45)
[2025-07-20] MEDS: HEPARIN SOD INJ 5000 UNIT/ML VIAL SC (08:47)
--- NOTE | 2025-07-20 08:51 | ESPR_ITS ---
<Statement entered by Homero Flores MD - 07/24/25 18:57> The patient is personally examined by me with resident physician Dr. Michael jolley patient clearly has moderate to severe calcific aortic stenosis clinically doing well symptoms are possible from aortic stenosis will do a workup as an outpatient patient patient can be discharged home since heart failure well compensated on low-dose diuretic will do cardiac workup including nuclear scan stress test possibly cardiac catheterization prior to returning TAVR procedure and candidacy for the TAVR. Documentation for date of: 07/20/25 Subjective Subjective Interval history: No acute overnight events. Statin patient resting comfortably in bed and has no complaints at this time. Technical issues getting echo read into system but it showed severe aortic stenosis and spoke to patient regarding findings. Will do further cardiac workup including cardiac cath prior to any surgical intervention for AVR on outpatient basis. Otherwise, can discharge on low-dose diuretic but will need to follow-up outpatient within 1 week of discharge but can be discharged from cardiology standpoint. Exam Vital Signs Temp Pulse Resp BP Pulse Ox O2 Del Method 97.0 F 64 16 157/71 H 97 Room Air 07/20/25 04:00 07/20/25 08:45 07/20/25 04:00 07/20/25 08:45 07/20/25 04:00 07/20/25 04:00 Narrative Exam General: alert, no acute distress, able to speak full sentences HEENT: NC/AT, mucous membranes moist, bilateral sclera anicteric Cardiovascular: harsh/high-pitched systolic murmur that radiates to carotids and posteriorly, regular rate and rhythm, S1/S2 present Pulmonary: clear to auscultation bilaterally, no rales/rhonchi/wheezes Abdominal: soft, non-tender, non-distended, no rebound/guarding, normal bowel sounds present Musculoskeletal: normal ROM, no peripheral edema Skin: warm and dry, intact, no rashes Objective Labs 07/20/25 05:43 07/20/25 05:43 Labs: Laboratory Results - last 24 hr 07/19/25 07/20/25 13:32 05:43 WBC 8.6 RBC 3.79 L Hgb 11.2 L Hct 34.0 L MCV 90 MCH 29.6 MCHC 32.9 RDW Std Deviation 46.8 H Plt Count 155 Neut % (Auto) 58 Lymph % (Auto) 29 [place] % (Auto) 8 Eos % (Auto) 4 Baso % (Auto) 1 Neut # (Auto) 5.0 Lymph # (Auto) 2.5 [place] # (Auto) 0.7 Eos # (Auto) 0.3 Baso # (Auto) 0.1 Immature Gran # (Auto) 0.02 H Absolute Nucleated RBC 0.00 Immature Gran % 0 Nucleated RBC % 0 Sodium 141 Potassium 4.2 Chloride 104 Carbon Dioxide 26.6 Anion Gap 10 BUN 25 H Creatinine 1.4 H Estim Creat Clear Calc 33.1 L eGFR 40 L BUN/Creatinine Ratio [address] Glu mg/dL 114 Hemoglobin A1c 5.6 Calculated Osmolality 285 Calcium 9.7 Corrected Calcium 9.7 Phosphorus 3.6 Magnesium 1.8 Total Bilirubin 1.0 AST 35 H 31 ALT 16 Alkaline Phosphatase 78 Lactate Dehydrogenase 257 H Total Creatine Kinase 72 Troponin I < 0.020 Total Protein 7.3 Albumin 4.4 Globulin 2.9 Albumin/Globulin Ratio 1.5 TSH 1.08 Quality Measures Quality Measures VTE prophylaxis Advance care planning discussed with:: patient and child Assessment & Plan Assessment Current Active Medications: Generic Name Dose Route Start Last Admin Trade Name Freq PRN Reason Stop Dose Admin Acetaminophen 650 mg 07/19/25 10:09 07/19/25 22:09 Acetaminophen 325 Mg Tablet PO 08/18/25 10:08 650 mg Q6H PRN Administration Fever >100.4 or pain 1-6 Atorvastatin Calcium 10 mg 07/19/25 21:00 07/19/25 21:57 Atorvastatin Calcium 10 Mg Tablet PO 08/18/25 20:59 10 mg HS ALEJANDRA Administration Dextrose 25 ml 07/19/25 10:14 Dextrose 50%-Water Inj 50 Ml Syringe IV 08/18/25 10:13 Q15MIN PRN BG 50-70 responsive npo pt Dextrose 50 ml 07/19/25 10:14 Dextrose 50%-Water Inj 50 Ml Syringe IV 08/18/25 10:13 Q15MIN PRN BG <50 OR BG <70 & pt unresponsive Donepezil HCl 5 mg 07/19/25 21:00 07/19/25 21:57 Donepezil Hcl 5 Mg Tablet PO 08/18/25 20:59 5 mg HS ALEJANDRA Administration Famotidine 20 mg 07/19/25 21:00 07/20/25 08:45 Famotidine 20 Mg Tablet PO 08/18/25 20:59 20 mg BID ALEJANDRA Administration Furosemide 40 mg 07/19/25 09:00 07/20/25 08:44 Furosemide Inj 10 Mg/Ml 4ml Vial IVP 08/18/25 08:59 40 mg QDAY ALEJANDRA Administration Glucagon 1 mg 07/19/25 10:14 Glucagon Inj 1 Mg Vial IM Q15MIN PRN BG <70, and no IV access Heparin Sodium (Porcine) 5,000 unit 07/19/25 21:00 07/19/25 21:57 Heparin Sod Inj 5000 Unit/Ml Vial SC 08/02/25 20:59 5,000 unit Q12HR ALEJANDRA Administration Hydralazine HCl 10 mg 07/19/25 10:16 Hydralazine Inj 20 Mg/Ml Vial IVP 08/18/25 10:15 Q6HR PRN SBP > 180 Insulin Human Lispro 0 unit 07/19/25 11:30 07/20/25 07:32 Insulin Lispro (Admelog) 1 Unit/0.01 Ml Unit SC 08/18/25 11:29 Not Given AC ALEJANDRA Protocol Lisinopril 10 mg 07/20/25 09:00 07/20/25 08:45 Lisinopril 2.5 Mg Tablet PO 08/19/25 08:59 10 mg QDAY ALEJANDRA Administration Morphine Sulfate 1 mg 07/19/25 10:09 Morphine Sulf Inj 4 Mg/Ml Vial IVP 07/24/25 10:08 Q2H PRN PAIN SCALE 7-10 (Severe Ondansetron HCl 4 mg 07/19/25 10:09 Ondansetron Inj 2 Mg/Ml Inj 2 Ml IVP 08/18/25 10:08 Q6H PRN NAUSEA OR VOMITING Protocol Sertraline HCl 100 mg 07/19/25 21:00 07/19/25 21:57 Sertraline Hcl 25 Mg Tablet PO 08/18/25 20:59 100 mg HS ALEJANDRA Administration Plan Sophie Flores is a 74-year-old female with history of hypertension, hyperlipidemia, type 2 diabetes mellitus, prior CVA, dementia who is admitted for work-up of acute onset shortness of breath for which cardiology is also consulted. #Dyspnea on exertion #Systolic murmur #Severe aortic stenosis Per history, presents with acute onset dyspnea on exertion starting on the day of admission with minimal exertion. Per family, no indication of progressive symptoms but they do not live with patient so will have to ask [id number]. Symptoms described as lightheadedness, diaphoresis, and dyspnea on exertion with high-pitched systolic murmur that radiates to carotids bilaterally and suspect etiology of presentation to be secondary to aortic stenosis. EKG without significant changes and CXR showed vascular congestion. BNP elevated at 889 and troponins negative x3. Echo read though technical difficulties transferring to EMR and showed severe aortic stenosis. ? Can be discharged from cardiology standpoint with outpatient follow-up within 1 week ? Agree with low dose diuretic upon discharge ? Strict I/O, fluid restriction, daily weights ? Titrate blood pressure to avoid hypotension given possibility of aortic stenosis #XIMENA on CKD #Type 2 diabetes mellitus #Hypertension #Hyperlipidemia #Dementia #Depression/anxiety ? Management per primary team ----- Plan discussed with attending physician Dr. Mark Jolley MD PGY-2 Internal Medicine
[2025-07-20] MEDS: Magnesium Sulfate 2 GM Ivpb 2 GM/50 ML BAG IV (10:11)
--- NOTE | 2025-07-20 11:42 | PD.RESDS ---
Planned Discharge Date 07/20/25 DS: Providers Provider Date of admission: 07/18/25 21:59 Primary care physician: Juan Liang MD Admitting Provider: Juan Liang MD Attending Provider on Admission: Juan Liang MD Consults: 07/18/25 22:37 Consult to Cardiology Urgent Comment: Consulting Provider: Homero Flores 07/19/25 03:38 [facility] Referral - Transportation Routine Comment: Positive screening for transportation needs. Attending Provider on DC: Juan Liang MD Discharging Provider: Erica Wright MD DS: Diagnosis Problem List Completed Was Problem List Reviewed/Reconciled?: Yes Hospital Course Hospital Course Hospital course: 74-year-old female who presented on 07/18/25 with sudden onset shortness of breath that developed after minimal exertion. She denied chest pain, cough, or orthopnea. On exam, she had a blowing systolic murmur radiating posteriorly with bibasilar crackles. Chest X-ray showed early pulmonary congestion and mild pulmonary artery hypertension. Labs revealed BNP 889, Cr 1.8 -> 1.6 -> 1.4, and troponins negative ?3. She was started on furosemide 40 mg IV daily, continued on lisinopril, placed on fluid and sodium restriction, and monitored on telemetry. Cardiology evaluated the patient and suspected valvular disease (possible aortic stenosis) contributing to early CHF. Electrolytes were replaced (Mg 1.8, Phos 3.6). Blood pressure remained mildly elevated but stable (160/70, HR 58). No arrhythmias noted. Symptoms resolved, oxygenation remained stable, and she was cleared by cardiology for discharge with outpatient follow-up. The patient is stable, euvolemic, and asymptomatic at discharge. Diagnosis during admission: #Systolic murmur / possible aortic stenosis #Possible early onset heart failure #XIMENA on CKD stage 3 #Type 2 Diabetes Mellitus #Hypertension #Hyperlipidemia #Dementia #Depression and Anxiety Discharge instructions: -Continue Lasix 20 mg daily -Avoid NSAIDs and nephrotoxic medications -Ambulate as tolerated -Watch for swelling, new or worsening shortness of breath, chest pain, or dizziness Follow-Up: -Cardiology: in 1 week for echo review and murmur evaluation -PCP: in 1 week; obtain renal panel the day before appointment -Labs: Repeat renal panel, magnesium, and phosphorus before PCP visit -Return to ED if: chest pain, shortness of breath, syncope, severe dizziness, or confusion -Ensure adherence to medications, diet, and follow-up visits ----- Plan discussed with attending physician Dr. Azul Wright MD PGY-1 Internal Medicine Status at Discharge Cognitive/behavioral status at discharge: Stable Functional status at discharge: independent ambulation Overall status at discharge: patient is progressing back to baseline Time Spent with Patient Time attestation: Total time spent providing and/or coordinating discharge services: Time spent: Greater than 30 minutes Exam Vital Signs Temp Pulse Resp BP Pulse Ox O2 Del Method 97.0 F 54 L 20 157/71 H 97 Room Air 07/20/25 04:00 07/20/25 11:13 07/20/25 11:13 07/20/25 08:45 07/20/25 04:00 07/20/25 04:00 Narrative Exam General: Awake, alert, in no acute distress, pleasant and cooperative Neck: Supple, no thyromegaly or lymphadenopathy Cardiac: Regular rate and rhythm, grade 3/6 blowing systolic murmur radiating posteriorly, no gallops or rubs Lungs: Clear to auscultation bilaterally, no wheezes or crackles, breathing comfortably on room air Abdomen: Soft, non-tender, non-distended, positive bowel sounds, no hepatosplenomegaly Extremities: No cyanosis, clubbing, or edema, peripheral pulses 2+ bilaterally Neuro: Alert and oriented ?2 (baseline dementia), speech coherent, moves all extremities equally Skin: Warm, dry, intact, no rashes or lesions Discharge Plan Plan Patient Disposition: HOME (Self Care) Patient condition on transfer: Stable Care Plan Goals: -Continue Lasix 20 mg daily -Avoid NSAIDs and nephrotoxic medications -Ambulate as tolerated -Watch for swelling, new or worsening shortness of breath, chest pain, or dizziness Follow-Up: -Cardiology: in 1 week for echo review and murmur evaluation -PCP: in 1 week; obtain renal panel the day before appointment -Labs: Repeat renal panel, magnesium, and phosphorus before PCP visit -Return to ED if: chest pain, shortness of breath, syncope, severe dizziness, or confusion -Ensure adherence to medications, diet, and follow-up visits Prescriptions/Referrals Prescriptions/Med Rec: Continued atorvastatin 10 mg tablet 10 tab PO QDAY Patient Comments: TAKE 1 TABLET BY MOUTH AT BEDTIME lisinopril 10 mg tablet 10 tab PO QDAY Patient Comments: TAKE 1 TABLET BY MOUTH ONCE DAILY glipizide-metformin 5-500 mg tablet 1 tab PO BID Patient Comments: TAKE 1 TABLET BY MOUTH TWICE DAILY sertraline 50 mg Tablet 100 mg PO HS furosemide 20 mg tablet 20 mg PO QDAY Patient Comments: TAKE 1 TABLET BY MOUTH ONCE DAILY donepezil 5 mg tablet 5 mg PO HS Patient Comments: TAKE 1 TABLET BY MOUTH NIGHTLY Januvia 25 mg tablet 25 mg PO QDAY Patient Comments: TAKE 1 TABLET BY MOUTH ONCE DAILY Discontinued ibuprofen 400 mg Tablet 400 mg PO BID Referrals: Juan Liang MD [Primary Care Provider, Nephrology] Patient/Caregiver Discharge Instructions Discharge Activity: activity as tolerated Education Materials: Heart Failure Dc Print Language: Icelandic Activity Restrictions/Additional Instructions: f/u with dr. langley in 1-2 weeks f/u withsumanth liang in 1week Stand Alone Forms: Za Award Info., Patient Portal Info Letter Discharge Order Discharge Orders: Discharge (Routine); Ordered 07/20/25 Ordered By: Juan Liang Quality Discharge Quality Measures VTE prophylaxis MD Attestestation MD Attestation Patient seen and examined with resident physician Dr. Eid. Note reviewed, agree with findings and recommendations. Admitted with shortness of breath and CHF exacerbation. Spoke to Dr. Langley-can be discharged on Lasix Will see her in his office next week.
--- NOTE | 2025-07-20 15:36 | PC.SS ---
Walkers The diagnosis creates mobility limitation that significantly impairs ability to participate in the patients activities of daily living either in their entirety, or in a reasonable time frame. Also the patient is able to safely use the walker and the patient?s mobility is sufficiently resolved with the use of the walker and cane has been ruled out. Bedside Commode Patient is physically incapable of utilizing regular toilet facilities because his or her diagnosis confines the patient to a single room. Patient is confined to a single level, and there is no toilet on that level; patient cannot access the toilet facilities in a timely manner due to lack of ambulation.
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
== END 2025-07-20 13:47 | disposition home or self-care (01) | DRG 292 ==
LOC: SERX 22:12 → SERHOLD 22:30 → S2NX 07-19 03:23
PROVIDERS: Physician Assistant; Admitting Provider Internal Medicine; Emergency Provider Emergency Medicine; PCP Internal Medicine; Visit Provider Internal Medicine
DX: I13.0 Hypertensive heart and chronic kidney disease with heart failure and stage 1 through stage 4 chronic kidney disease, or unspecified chronic kidney disease (principal); N17.9 Acute kidney failure, unspecified; I50.9 Heart failure, unspecified; R01.1 Cardiac murmur, unspecified; R06.02 Shortness of breath; N18.30 Chronic kidney disease, stage 3 unspecified; E11.22 Type 2 diabetes mellitus with diabetic chronic kidney disease; E78.5 Hyperlipidemia, unspecified; F32.A Depression, unspecified; I27.21 Secondary pulmonary arterial hypertension; D63.1 Anemia in chronic kidney disease; I35.0 Nonrheumatic aortic (valve) stenosis; Z79.899 Other long term (current) drug therapy; Z86.73 Personal history of transient ischemic attack (TIA), and cerebral infarction without residual deficits; Z90.710 Acquired absence of both cervix and uterus; Z97.0 Presence of artificial eye
CPT/HCPCS: 36415; 71045; 80053; 80069; 82550; 83036; 83615; 83735; 83880; 84100; 84443; 84450; 84484; 85025; 85379; 87811; 93005; 93306; 96374; 99284; J1644; J1938; J3475; A9270

== ENCOUNTER → 2025-08-26 | Outpatient (CLI) | payer MEDICARE, MEDICAID, SELFPAY ==
[2025-08-26 09:49] LABS: Glucose Estimated Average 120 mg/dL (80-131); Hemoglobin A1C 5.8 % Hgb (4.8-6.0)
[2025-08-26 09:57] LABS: Parathyroid Hormone Intact 79.5 pg/ml (18.5-88.0)
[2025-08-26 10:07] LABS: Alanine Aminotransferase 14 U/L (10-49); Albumin, Serum 4.7 gm/dL (3.4-4.8); Albumin/Globulin Ratio 1.8 (1.2-2.2); Alkaline Phosphatase 91 U/L (46-116); Anion Gap 11 (7-16); Aspartate Amino Transferase 28 U/L (0-34); BUN/Creatinine Ratio 19 Ratio (12-20); Bilirubin,Total 0.9 mg/dL (0.3-1.2); Blood Urea Nitrogen 28 mg/dL (9-23); Calcium 9.3 mg/dL (8.3-10.6); Calcium (Corrected) 9.3 mg/dL (8.5-10.1); Carbon Dioxide 24.5 mMol/L (20.0-31.0); Cardiac Risk Estimate 3.1 RATIO (3.7-5.6); Chloride 106 mMol/L (98-107); Cholesterol 155 mg/dL (132-200); Creatinine (Component) 1.5 mg/dL (0.6-1.3); Globulin 2.6 gm/dL (2.3-3.5); Glucose 121 mg/dL (74-106); HDL Cholesterol 50 mg/dL (40-60); LDL Cholesterol,Calculated 83 mg/dL (0-130); Osmolality,Calculated 287 (275-295); Potassium 4.8 mMol/L (3.4-5.1); Sodium 141 mMol/L (136-145); Total Protein 7.3 gm/dL (5.7-8.2); Triglycerides 111 mg/dL (30-150); eGFR 36 See Note
[2025-08-26 10:21] LABS: Collection Type, Urine Clean Catch
[2025-08-26 10:55] LABS: Creatinine MALB Rnd Ur 109 mg/dL (30-125); Microalbumin Creat Ratio 21 mg/gCrea (<30); Microalbumin, Random Urine 23 mg/L (0-300)
[2025-08-26 11:17] LABS: Bacteria,Urine Rare; Bilirubin,Urine Negative (Negative); Blood,Urine Negative (Negative); Clarity,Urine Clear (Clear/Hazy); Color,Urine Lt-Yellow (Lt Yel-Yel); Glucose, Urine Negative (Negative); Hyaline Casts,Urine < 1 /hpf (0-1); Ketones,Urine Negative (Negative); Leukocyte Esterase,Urine Positive (Negative); Nitrite,Urine Negative (Negative); PH,Urine 5.5 (5.0-7.0); Protein,Urine Negative (Neg - Trace); RBC,Urine 5 /hpf (0-3); Specific Gravity,Urine 1.019 (1.001-1.035); Squamous Epithelial Cell,Urine 1 /hpf (0-5); Urobilinogen,Urine Negative mg/dL (0.0-1.0); WBC,Urine 9 /hpf (0-5)
[2025-08-26 11:53] LABS: Basophils # (Auto) 0.1 Thou/mm3 (0.0-0.2); Basophils % (Auto) 1 % (0-2.5); Eosinophils # (Auto) 0.1 Thou/mm3 (0.0-0.5); Eosinophils % (Auto) 2 % (0-10); Hematocrit 35.2 % (36.0-46.0); Hemoglobin 11.9 g/dL (12.0-16.0); Immature Granulocytes Auto 0.02 Thou/mm3 (0.00-0.00); Lymphocytes # (Auto) 1.4 Thou/mm3 (1.0-4.8); Lymphocytes % (Auto) 21 % (10-50); Mean Corpuscular HGB Conc 33.8 g/dl (31.0-37.0); Mean Corpuscular Hemoglobin 30.2 pg (25.0-35.0); Mean Corpuscular Volume 89 fL (80-100); Monocytes # (Auto) 0.5 Thou/mm3 (0.0-0.8); Monocytes % (Auto) 7 % (0-12); Neutrophils # (Auto) 4.7 Thou/mm3 (1.8-7.7); Neutrophils % (Auto) 69 % (37-80); Nucleated Red Blood Cell # 0.00 Thou/mm3 (0.00-0.00); Nucleated Red Blood Cell % 0 /100 WBC (0); Platelet Count 144 Thou/mm3 (140-440); RDW Standard Deviation 46.2 fL (36.4-46.3); Red Blood Count 3.94 Miln/mm3 (4.00-5.20); White Blood Count 6.8 Thou/mm3 (3.6-11.0)
== END | disposition home or self-care (01) ==
LOC: COPL 08:33
PROVIDERS: PCP Internal Medicine; Referring Provider Internal Medicine; Visit Provider Internal Medicine
DX: I12.9 Hypertensive chronic kidney disease with stage 1 through stage 4 chronic kidney disease, or unspecified chronic kidney disease (principal); E11.22 Type 2 diabetes mellitus with diabetic chronic kidney disease; N18.30 Chronic kidney disease, stage 3 unspecified; E78.5 Hyperlipidemia, unspecified
CPT/HCPCS: 36415; 80053; 80061; 81001; 82043; 82570; 83036; 83970; 85025

== ENCOUNTER 2025-09-19 06:36 | Day surgery (SDC) | payer MEDICARE, MEDICAID, SELFPAY ==
--- NOTE | 2025-09-16 07:00 | EKG_ITS ---
[facility] Test Date: 2025-09-16 Pat Name: MANUEL BOUDREAUX Department: Room: - Gender: Female [employer]: JESSICA : 1950 Requested By: Homero Carmona Order Number: [id number] Reading MD: Homero Carmona Measurements Intervals [place] Rate: 75 P: 46 PA: 194 QRS: 50 QRSD: 88 T: 38 QT: 377 QTc: 422 Interpretive Statements SINUS RHYTHM LEFT ATRIAL ENLARGEMENT [-0.15mV P WAVE IN V1/V2] Compared to ECG 07/18/2025 20:30:35 Myocardial infarct finding no longer present /store/S0/[id number]/ecg/[id number].pdf
[2025-09-16 13:37] LABS: Basophils # (Auto) 0.1 Thou/mm3 (0.0-0.2); Basophils % (Auto) 1 % (0-2.5); Eosinophils # (Auto) 0.2 Thou/mm3 (0.0-0.5); Eosinophils % (Auto) 2 % (0-10); Hematocrit 32.8 % (36.0-46.0); Hemoglobin 10.7 g/dL (12.0-16.0); Immature Granulocytes Auto 0.04 Thou/mm3 (0.00-0.00); Lymphocytes # (Auto) 2.1 Thou/mm3 (1.0-4.8); Lymphocytes % (Auto) 22 % (10-50); Mean Corpuscular HGB Conc 32.6 g/dl (31.0-37.0); Mean Corpuscular Hemoglobin 30.1 pg (25.0-35.0); Mean Corpuscular Volume 92 fL (80-100); Monocytes # (Auto) 0.6 Thou/mm3 (0.0-0.8); Monocytes % (Auto) 6 % (0-12); Neutrophils # (Auto) 6.9 Thou/mm3 (1.8-7.7); Neutrophils % (Auto) 70 % (37-80); Nucleated Red Blood Cell # 0.00 Thou/mm3 (0.00-0.00); Nucleated Red Blood Cell % 0 /100 WBC (0); Platelet Count 186 Thou/mm3 (140-440); RDW Standard Deviation 49.2 fL (36.4-46.3); Red Blood Count 3.56 Miln/mm3 (4.00-5.20); White Blood Count 9.9 Thou/mm3 (3.6-11.0)
[2025-09-16 13:45] LABS: INR 1.0 (0.9-1.3); Partial Thromboplastin Time 27.9 Seconds (22.0-36.0); Prothrombin Time 10.3 Seconds (9.0-12.2)
[2025-09-16 13:46] LABS: Anion Gap 11 (7-16); BUN/Creatinine Ratio 23 Ratio (12-20); Blood Urea Nitrogen 37 mg/dL (9-23); Calcium 9.6 mg/dL (8.3-10.6); Carbon Dioxide 26.0 mMol/L (20.0-31.0); Chloride 106 mMol/L (98-107); Creatinine (Component) 1.6 mg/dL (0.6-1.3); Glucose 112 mg/dL (74-106); Osmolality,Calculated 294 (275-295); Potassium 4.4 mMol/L (3.4-5.1); Sodium 143 mMol/L (136-145); eGFR 34 See Note
[2025-09-16 14:03] VITALS: BMI 29.2
[2025-09-19] VITALS (20 sets, daily range): BP systolic 94–148; BP diastolic 50–72; PULSE 56–68; RESP 10–20; TEMP 36.1–36.7; O2SAT 90–96
--- NOTE | 2025-09-19 08:40 | PC.NURSE ---
Arterial Sheath removed. No bleeding or hematoma. Held pressure for 15 minutes. Removed Venous Sheath, held pressure for 10 minutes. Hemostasis obtained at 0905. Dressing applied, clean dry and intact. No bleeding or hematoma,. VSS. patient resting stable on gurney with daughter at bedside. Will continue to monitor.
--- NOTE | 2025-09-19 08:55 | ESOP_ITS ---
RE: MANUEL BOUDREAUX : 1950 PROCEDURES PERFORMED: 1. Diagnostic right and left heart catheterization, selective coronary angiogram, left ventricular angiogram (CPT 19959). 2. Conscious sedation, 30-minute duration. 3. Ultrasound-guided access right radial artery and femoral vein. 4. Iliofemoral angiogram. DIAGNOSIS: Severe aortic stenosis. INDICATION: The patient is a 75-year-old female with past medical history of hypertension with severe calcific aortic stenosis with more than 60 mm gradient across the aortic valve, ____ and has been having episodes of shortness of breath on exertion, chest discomfort. Right and left heart cardiac catheterization, coronary angiogram is recommended to assess the patient's candidacy for coronary intervention, revascularization, and possible aortic valve replacement. Pre-TAVR cardiac catheterization recommended coronary angiogram. PROCEDURE DETAILS: The patient brought to the cardiac laboratory apparatus glass blower. Informed consent was obtained. Conscious sedation was given, 2 mg of Versed and 50 mcg of fentanyl. A right femoral approach was taken. Right femoral artery was cannulated with micropuncture technique and a 5-Malaysian sheath was introduced. Right femoral vein was cannulated by micropuncture technique and a 7-Malaysian sheath was introduced. A right heart catheterization was performed with [place]ia catheter. Right heart pressures were measured. Cardiac output was obtained by thermodilution technique. Subsequently, left heart catheterization was performed by FR4 diagnostic catheter with straight guidewire. Left ventricular angiogram performed. Selective right and left coronary angiogram performed with 5-Malaysian FR4, FL4 diagnostic catheter. Iliofemoral angiogram performed and manual compression was applied. The patient tolerated the procedure well. No complications. HEMODYNAMICS: Left ventricular pressure is measured to be 200 systolic. Diastolic pressure is 6 mmHg. End-diastolic pressure is 18. Aortic pressure was measured to be 117/44 mmHg. There is a [id number] gradient of 78 mmHg and mean gradient of 48 mmHg. Aortic valve area is 0.4 cm2. The cardiac output is 3.3 L/min. FINDINGS: Left ventricular angiogram showed normal left ventricular wall motion, ejection fraction of 70%. Coronary angiogram showed following findings, right coronary is large, dominant, appears normal, and gives a posterior descending artery. Left coronary system, left main coronary is normal. Left anterior descending artery is normal. Circumflex artery appears normal, fairly large, and gives off several posterolateral branches, obtuse marginal branches. All of them normal. Cardiac fluoroscopy showed calcification of mitral annulus and mitral aortic valve. SUMMARY OF FINDINGS: 1. Severe calcific aortic stenosis with aortic valve area of 0.4 cm2, mean gradient of 48 mmHg, and peak gradient of 70 mmHg. 2. Normal nonobstructive epicardial coronary arteries. 3. Normal left ventricular function. RECOMMENDATIONS: The patient is symptomatic with severe aortic stenosis. Recommended transcatheter aortic valve replacement. Will be referred for TAVR procedure. DT: 08:39:24 TT: 08:54:00 Ref: [id number] - TID: [id number]
--- NOTE | 2025-09-19 10:01 | PC.NURSE ---
Purewick placed on patient at this time.
--- NOTE | 2025-09-19 10:15 | PC.NURSE ---
1015 patient is awake, alert, breathing unlabored, s/p LHC and RHC by Dr Flores, dressing to right groin dry with no bleeding or hematoma noted, arterial and venous sheaths have been removed. Report received from Mickie LIRA, Hemostasis time 904, ok to discharge patient home 1305.
--- NOTE | 2025-09-19 11:42 | PC.NURSE ---
patient did not eat breakfast tray, new lunch tray ordered
--- NOTE | 2025-09-19 16:46 | PC.NURSE ---
1316 patient is awake, alert, breathing unlabored, dressing to right groin dry with no bleeding or hematoma, patient able to tolerate lunch tray with no nausea or vomiting, able to ambulate to bathroom and void, meets discharge criteria, discharge instructions given to patient and daughter Alma, patient discharged home in wheelchair with all belongings. Dr. Flores talk to patient and daughter and answered questions.
== END 2025-09-19 13:16 | disposition home or self-care (01) ==
PROVIDERS: PCP Internal Medicine; Referring Provider Internal Medicine Cardiovascular Disease; Visit Provider Internal Medicine Cardiovascular Disease
PROC: (CPT 93460; principal; 2025-09-19 07:30)
DX: I35.0 Nonrheumatic aortic (valve) stenosis (principal); E11.9 Type 2 diabetes mellitus without complications; I20.89 Other forms of angina pectoris; Z79.84 Long term (current) use of oral hypoglycemic drugs; Z79.899 Other long term (current) drug therapy; I10 Essential (primary) hypertension; Z01.810 Encounter for preprocedural cardiovascular examination
CPT/HCPCS: 93460; G0278; 36415; 80048; 85025; 85610; 85730; 93005; 99152; 99153; A4649; C1725; C1769; C1894; J0168; J0461; J1643; J2250; J2312; J2371; J3010; J3490; J2305

== ENCOUNTER → 2025-10-11 | Outpatient (CLI) | payer MEDICARE, MEDICAID, SELFPAY ==
--- NOTE | 2025-10-11 09:00 | XR_ITS ---
Examination: MRI brain without intravenous contrast. Date and time of exam: October 11, 2025, 0954 hours INDICATIONS: Increasing memory loss after 2016 stroke Technique: Multiple axial and sagittal images of the brain obtained. Siemens high-resolution 1.5 Gem short bore scanners utilized. Sagittal sections, T1-weighted, TR 500, TE 14, are performed. Axial sections proton-density and T2-weighted have been obtained. Inversion recovery axial images, TR 9, 260, TE 111, TI 2500. Diffusion weighted images, axial sections, TR 4800, TE 128, B value 1000 Axial sections, ADC map, TR 4800, TE 128 Findings: Enlargement of the sella turcica is not present. The optic chiasm and infundibular are not remarkable. Prepontine and interpeduncular cisterns are not enlarged. There is no localized enlargement of the medulla or deep. Fourth ventricle and cerebellar tonsils appear normal in position. No subacute area of hemorrhage density is seen. Mass in the cerebellopontine angle region is not evident. Globes symmetrical. Orbital musculature including medial lateral rectus muscles do not exhibit abnormality. Diffusion-weighted images demonstrate no focus of restricted diffusion. Increased white matter signal prominent Mass effect upon the ventricular system is not identified. Impression: Negative for acute hemorrhage mass effect or midline shift No acute infarct Prominent chronic microvascular white matter change
== END | disposition home or self-care (01) ==
PROVIDERS: PCP Internal Medicine; Referring Provider Internal Medicine; Visit Provider Internal Medicine
DX: R90.82 White matter disease, unspecified (principal)
CPT/HCPCS: 70551